=== PATIENT | male | born 1960 ===

== ENCOUNTER 2023-03-23 11:02 | Emergency (ER) | payer OTHER ==
--- OUTSIDE RECORDS SUMMARY | 2023-03-23 11:08 | XMS REPORT | Continuity of Care Document ---
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 2-29 capsule by ity of mg capsule 00:00: mouth [place] 00 daily. Medical Branch Polyethylen 2018- Yes [id number] 1{packe Take 1 Univers e Glycol 2-29 t} Packet by ity of 3350 00:00: mouth [place] (MIRALAX) 00 daily. Medical gram [place] powder docusate 2018-11 Yes [id number] 250mg Take 1 Un rupa sodium 250 2-29 capsule by ity of mg capsule 00:00: mouth [place] 00 daily. Medical Branch Polyethylen 2018-11 Yes [id number] 1{packe Take 1 Univers e Glycol 2-29 t} Packet by ity of 3350 00:00: mouth [place] (MIRALAX) 00 daily. Medical 17 gram Branch powder docusate 2018-11 Yes [id number] 250mg Take 1 Un rupa sodium 250 2-29 capsule by ity of mg capsule 00:00: mouth [place] 00 daily. Medical Branch Polyethylen 2018-11 Yes [id number] 1{packe Take 1 Univers e Glycol 2-29 t} Packet by ity of 3350 00:00: mouth [place] (MIRALAX) 00 daily. Medical 17 gram Branch powder docusate 2018-11 Yes [id number] 250mg Take 1 Un rupa sodium 250 2-29 capsule by ity of mg capsule 00:00: mouth [place] 00 daily. Medical Branch Polyethylen 2018- Yes [id number] 1{packe Take 1 Univers e Glycol 2-29 t} Packet by ity of 3350 00:00: mouth [place] (MIRALAX) 00 daily. Medical 17 gram Branch powder docusate 2018-11 Yes [id number] 250mg Take 1 Un rupa sodium 250 2-29 capsule by ity of mg capsule 00:00: mouth [place] 00 daily. Medical Branch Polyethylen 2018-11 Yes [id number] 1{packe Take 1 Univers e Glycol 2-29 t} Packet by ity of 3350 00:00: mouth [place] (MIRALAX) 00 daily. Medical 17 gram Branch powder docusate 2018-11 Yes [id number] 250mg Take 1 Un rupa sodium 250 2-29 capsule by ity of mg capsule 00:00: mouth [place] 00 daily. Medical Branch Polyethylen 2018- Yes [id number] 1{packe Take 1 Univers e Glycol 2-29 t} Packet by ity of 3350 00:00: mouth [place] (MIRALAX) 00 daily. Medical 17 gram Branch powder docusate 2018-11 Yes [id number] 250mg Take 1 Un [facility] sodium 250 2-29 capsule by ity of mg capsule 00:00: mouth [place] 00 daily. Medical Branch Polyethylen 2018-11 Yes [id number] 1{packe Take 1 Univers e Glycol 2-29 t} Packet by ity of 3350 00:00: mouth [place] (MIRALAX) 00 daily. Medical 17 gram Branch powder docusate 2018-11 Yes [id number] 250mg Take 1 Un rupa sodium 250 2-29 capsule by ity of mg capsule 00:00: mouth [place] 00 daily. Medical Branch Polyethylen 2018-11 Yes [id number] 1{packe Take 1 Univers e Glycol 2-29 t} Packet by ity of 3350 00:00: mouth [place] (MIRALAX) 00 daily. Medical 17 gram Branch powder docusate 2018-11 Yes [id number] 250mg Take 1 Un rupa sodium 250 2-29 capsule by ity of mg capsule 00:00: mouth [place] 00 daily. Medical Branch Polyethylen 2018-11 Yes [id number] 1{packe Take 1 Univers e Glycol 2-29 t} Packet by ity of 3350 00:00: mouth [place] (MIRALAX) 00 daily. Medical 17 gram Branch powder docusate 2018-11 Yes [id number] 250mg Take 1 Un rupa sodium 250 2-29 capsule by ity of mg capsule 00:00: mouth [place] 00 daily. Medical Branch Polyethylen 2018-11 Yes [id number] 1{packe Take 1 Univers e Glycol 2-29 t} Packet by ity of 3350 00:00: mouth [place] (MIRALAX) 00 daily. Medical 17 gram Branch powder docusate 2018-11 Yes [id number] 250mg Take 1 Un [facility]upa sodium 250 2-29 capsule by ity of mg capsule 00:00: mouth [place] 00 daily. Medical Branch Polyethylen 2018-11 Yes [id number] 1{packe Take 1 Univers e Glycol 2-29 t} Packet by ity of 3350 00:00: mouth [place] (MIRALAX) 00 daily. Medical 17 gram Branch powder docusate 2018-11 Yes [id number] 250mg Take 1 Un [facility]upa sodium 250 2-29 capsule by ity of mg capsule 00:00: mouth [place] 00 daily. Medical Branch Polyethylen 2018-11 Yes [id number] 1{packe Take 1 Univers e Glycol 2-29 t} Packet by ity of 3350 00:00: mouth [place] (MIRALAX) 00 daily. Medical 17 gram Branch powder docusate 2018-11 Yes [id number] 250mg Take 1 Un [facility] sodium 250 2-29 capsule by ity of mg capsule 00:00: mouth [place] 00 daily. Medical Branch Polyethylen 2018-11 Yes [id number] 1{packe Take 1 Univers e Glycol 2-29 t} Packet by ity of 3350 00:00: mouth [place] (MIRALAX) 00 daily. Medical 17 gram Branch powder docusate 2018-11 Yes [id number] 250mg Take 1 Un rupa sodium 250 2-29 capsule by ity of mg capsule 00:00: mouth [place] 00 daily. Medical Branch Polyethylen 2018-11 Yes [id number] 1{packe Take 1 Univers e Glycol 2-29 t} Packet by ity of 3350 00:00: mouth [place] (MIRALAX) 00 daily. Medical 17 gram Branch powder docusate 2018-11 Yes [id number] 250mg Take 1 Un [facility] sodium 250 2-29 capsule by ity of mg capsule 00:00: mouth [place] 00 daily. Medical Branch Polyethylen 2018-11 Yes [id number] 1{packe Take 1 Univers e Glycol 2-29 t} Packet by ity of 3350 00:00: mouth [place] (MIRALAX) 00 daily. Medical 17 gram Branch powder docusate 2018-11 Yes [id number] 250mg Take 1 Un rupa sodium 250 2-29 capsule by ity of mg capsule 00:00: mouth [place] 00 daily. Medical Branch Polyethylen 2018-11 Yes [id number] 1{packe Take 1 Univers e Glycol 2-29 t} Packet by ity of 3350 00:00: mouth [place] (MIRALAX) 00 daily. Medical 17 gram Branch powder docusate 2018-11 Yes [id number] 250mg Take 1 Un rupa sodium 250 2-29 capsule by ity of mg capsule 00:00: mouth [place] 00 daily. Medical Branch Polyethylen 2018-11 Yes [id number] 1{packe Take 1 Univers e Glycol 2-29 t} Packet by ity of 3350 00:00: mouth [place] (MIRALAX) 00 daily. Medical 17 gram Branch powder docusate 2018-11 Yes [id number] 250mg Take 1 Un rupa sodium 250 2-29 capsule by ity of mg capsule 00:00: mouth [place] 00 daily. Medical Branch Polyethylen 2018-11 Yes [id number] 1{packe Take 1 Univers e Glycol 2-29 t} Packet by ity of 3350 00:00: mouth [place] (MIRALAX) 00 daily. Medical 17 gram Branch powder docusate 2019- Yes [id number] 250mg Take 1 Un rupa sodium 250 2-29 capsule by ity of mg capsule 00:00: mouth [place] 00 daily. Medical Branch Polyethylen 2019 Yes [id number] 1{packe Take 1 Univers e Glycol 2-29 t} Packet by ity of 3350 00:00: mouth [place] (MIRALAX) 00 daily. Medical 17 gram Branch powder ASPIRIN 81 2016-11 Yes 81mg Take 1 Unive rs mg chewable 1-11 tablet by ity of tablet 00:00: mouth [place] 00 daily. Medical Branch ASPIRIN 81 2016-11 Yes 81mg Take 1 Unive rs mg chewable 1-11 tablet by ity of tablet 00:00: mouth [place] 00 daily. Medical Branch ASPIRIN 81 2016-11 Yes 81mg Take 1 Unive rs mg chewable 1-11 tablet by ity of tablet 00:00: mouth [place] 00 daily. Medical Branch ASPIRIN 81 2016-11 Yes 81mg Take 1 Unive rs mg chewable 1-11 tablet by ity of tablet 00:00: mouth [place] 00 daily. Medical Branch ASPIRIN 81 2016-11 Yes 81mg Take 1 Unive rs mg chewable 1-11 tablet by ity of tablet 00:00: mouth [place] 00 daily. Medical Branch ASPIRIN 81 2016-11 Yes 81mg Take 1 Unive rs mg chewable 1-11 tablet by ity of tablet 00:00: mouth [place] 00 daily. Medical Branch ASPIRIN 81 2016-11 Yes 81mg Take 1 Unive rs mg chewable 1-11 tablet by ity of tablet 00:00: mouth [place] 00 daily. Medical Branch ASPIRIN 81 2016-11 Yes 81mg Take 1 Unive rs mg chewable 1-11 tablet by ity of tablet 00:00: mouth [place] 00 daily. Medical Branch ASPIRIN 81 2016-11 Yes 81mg Take 1 Unive rs mg chewable 1-11 tablet by ity of tablet 00:00: mouth [place] 00 daily. Medical Branch ASPIRIN 81 2016- Yes 81mg Take 1 Unive rs mg chewable 1-11 tablet by ity of tablet 00:00: mouth [place] 00 daily. Medical Branch ASPIRIN 81 2016- Yes 81mg Take 1 Unive rs mg chewable 1-11 tablet by ity of tablet 00:00: mouth [place] 00 daily. Medical Branch ASPIRIN 81 2016-11 Yes 81mg Take 1 Unive rs mg chewable 1-11 tablet by ity of tablet 00:00: mouth [place] 00 daily. Medical Branch ASPIRIN 81 2016-11 Yes 81mg Take 1 Unive rs mg chewable 1-11 tablet by ity of tablet 00:00: mouth [place] 00 daily. Medical Branch ASPIRIN 81 2016-11 Yes 81mg Take 1 Unive rs mg chewable 1-11 tablet by ity of tablet 00:00: mouth [place] 00 daily. Medical Branch ASPIRIN 81 2016-11 Yes 81mg Take 1 Unive rs mg chewable 1-11 tablet by ity of tablet 00:00: mouth [place] 00 daily. Medical Branch ASPIRIN 81 2016-11 Yes 81mg Take 1 Unive rs mg chewable 1-11 tablet by ity of tablet 00:00: mouth [place] 00 daily. Medical Branch ASPIRIN 81 2016-11 Yes 81mg Take 1 Unive rs mg chewable 1-11 tablet by ity of tablet 00:00: mouth [place] 00 daily. Medical Branch ASPIRIN 81 2016-11 Yes 81mg Take 1 Unive rs mg chewable 1-11 tablet by ity of tablet 00:00: mouth [place] 00 daily. Medical Branch ASPIRIN 81 2016-11 Yes 81mg Take 1 Unive rs mg chewable 1-11 tablet by ity of tablet 00:00: mouth [place] 00 daily. Medical Branch ASPIRIN 81 2016-11 Yes 81mg Take 1 Unive rs mg chewable 1-11 tablet by ity of tablet 00:00: mouth [place] 00 daily. [facility] Branch ASPIRIN 81 2016-11 Yes 81mg Take 1 Unive rs mg chewable 1-11 tablet by ity of tablet 00:00: mouth [place] 00 daily. [facility] Branch lamoTRIgine Yes Bipolar 100mg QD Take 1 [place] (LAMICTAL) 8-10 Affective tablet by Health 100 mg 00:00: Disorder mouth [place] 00 daily. haloperidol Yes Bipolar 1 10mg Take 1 [place] (HALDOL) 10 8-10 disorder tablet by Health mg tablet 00:00: mouth 00 every evening. haloperidol Yes Bipolar 5mg QD Take 1 [facility] [place] (HALDOL) 5 8-10 Affective tablet by Health mg tablet 00:00: Disorder mouth 00 daily (with breakfast) . benztropine Yes Bipolar 1mg Q.5D Take 2 [facility] [place] (COGENTIN) 8-10 Affective tablets by Health 0.5 mg 00:00: Disorder mouth 2 tablet 00 times daily. lamoTRIgine Yes Bipolar 100mg QD Take 1 [place] (LAMICTAL) 8-10 Affective tablet by Health 100 mg 00:00: Disorder [place] 00 daily. haloperidol Yes Bipolar 1 10mg Take 1 [place] (HALDOL) 10 8-10 disorder tablet by Health mg tablet 00:00: mouth 00 every evening. haloperidol Yes Bipolar 5mg QD Take 1 [facility] [place] (HALDOL) 5 8-10 Affective tablet by Health mg tablet 00:00: Disorder mouth 00 daily (with breakfast) . benztropine Yes Bipolar 1mg Q.5D Take 2 [facility] [place] (COGENTIN) 8-10 Affective tablets by Health 0.5 mg 00:00: Disorder mouth 2 tablet 00 times daily. lamoTRIgine Yes Bipolar 100mg QD Take 1 [place] (LAMICTAL) 8-10 Affective tablet by Health 100 mg 00:00: Disorder mouth [place] 00 daily. haloperidol Yes Bipolar 1 10mg Take 1 [place] (HALDOL) 10 8-10 disorder tablet by Health mg tablet 00:00: mouth 00 every evening. haloperidol Yes Bipolar 5mg QD Take 1 [facility] [place] (HALDOL) 5 8-10 Affective tablet by Health mg tablet 00:00: Disorder mouth 00 daily (with breakfast) . benztropine Yes Bipolar 1mg Q.5D Take 2 [facility] [place] (COGENTIN) 8-10 Affective tablets by Health 0.5 mg 00:00: Disorder mouth 2 tablet 00 times daily. benztropine Yes Bipolar 1mg Q.5D Take 2 [facility] [place] (COGENTIN) 8-10 Affective tablets by Health 0.5 mg 00:00: Disorder mouth 2 tablet 00 times daily. lamoTRIgine Yes Bipolar 100mg QD Take 1 [place] (LAMICTAL) 8-10 Affective tablet by Health 100 mg 00:00: Disorder mouth [place] 00 daily. haloperidol Yes Bipolar 1 10mg Take 1 [place] (HALDOL) 10 8-10 disorder tablet by Health mg tablet 00:00: mouth 00 every evening. haloperidol Yes Bipolar 5mg QD Take 1 [facility] [place] (HALDOL) 5 8-10 Affective tablet by Health mg tablet 00:00: Disorder mouth 00 daily (with breakfast) . lamoTRIgine Yes Bipolar 100mg QD Take 1 [place] (LAMICTAL) 8-10 Affective tablet by Health 100 mg 00:00: Disorder mouth tablet 00 daily. haloperidol Yes Bipolar 1 10mg Take 1 [place] (HALDOL) 10 8-10 disorder tablet by Health mg tablet 00:00: mouth 00 every evening. haloperidol Yes Bipolar 5mg QD Take 1 [facility] [place] (HALDOL) 5 8-10 Affective tablet by Health mg tablet 00:00: Disorder mouth 00 daily (with breakfast) . benztropine Yes Bipolar 1mg Q.5D Take 2 [facility] [place] (COGENTIN) 8-10 Affective tablets by Health 0.5 mg 00:00: Disorder mouth 2 tablet 00 times daily. lamoTRIgine Yes 100mg Take 1 Tab Univers (LAMICTAL) 7-22 by mouth ity o f 100 mg 00:00: daily. [place] tablet [facility] lamoTRIgine Yes 100mg Take 1 Tab Univers (LAMICTAL) 7-22 by mouth ity o f 100 mg 00:00: daily. [place] tablet [facility] lamoTRIgine 0 Yes 100mg Take 1 Tab Univers (LAMICTAL) 7-22 by mouth ity o f 100 mg 00:00: daily. [place] tablet [facility] lamoTRIgine 0 Yes 100mg Take 1 Tab Univers (LAMICTAL) 7-22 by mouth ity o f 100 mg 00:00: daily. [place] tablet [facility] lamoTRIgine 0 Yes 100mg Take 1 Tab Univers (LAMICTAL) 7-22 by mouth ity o f 100 mg 00:00: daily. [place] tablet [facility] lamoTRIgine 0 Yes 100mg Take 1 Tab Univers (LAMICTAL) 7-22 by mouth ity o f 100 mg 00:00: daily. [place] tablet [facility] lamoTRIgine 0 Yes 100mg Take 1 Tab Univers (LAMICTAL) 7-22 by mouth ity o f 100 mg 00:00: daily. [place] tablet [facility] lamoTRIgine 0 Yes 100mg Take 1 Tab Univers (LAMICTAL) 7-22 by mouth ity o f 100 mg 00:00: daily. [place] tablet [facility] lamoTRIgine 2015-0 Yes 100mg Take 1 Tab Univers (LAMICTAL) 7-22 by mouth ity o f 100 mg 00:00: daily. [place] tablet 00 [facility] lamoTRIgine 2015-0 Yes 100mg Take 1 Tab Univers (LAMICTAL) 7-22 by mouth ity o f 100 mg 00:00: daily. [place] tablet [facility] lamoTRIgine 2015-0 Yes 100mg Take 1 Tab Univers (LAMICTAL) 7-22 by mouth ity o f 100 mg 00:00: daily. [place] tablet [facility] lamoTRIgine 2015-0 Yes 100mg Take 1 Tab Univers (LAMICTAL) 7-22 by mouth ity o f 100 mg 00:00: daily. [place] tablet [facility] lamoTRIgine 2015-0 Yes 100mg Take 1 Tab Univers (LAMICTAL) 7-22 by mouth ity o f 100 mg 00:00: daily. [place] tablet [facility] lamoTRIgine 2015-0 Yes 100mg Take 1 Tab Univers (LAMICTAL) 7-22 by mouth ity o f 100 mg 00:00: daily. [place] tablet [facility] lamoTRIgine 2015-0 Yes 100mg Take 1 Tab Univers (LAMICTAL) 7-22 by mouth ity o f 100 mg 00:00: daily. [place] tablet [facility] lamoTRIgine 2015-0 Yes 100mg Take 1 Tab Univers (LAMICTAL) 7-22 by mouth ity o f 100 mg 00:00: daily. [place] tablet [facility] lamoTRIgine 2015-0 Yes 100mg Take 1 Tab Univers (LAMICTAL) 7-22 by mouth ity o f 100 mg 00:00: daily. [place] tablet 00 [facility] lamoTRIgine 2015-0 Yes 100mg Take 1 Tab Univers (LAMICTAL) 7-22 by mouth ity o f 100 mg 00:00: daily. [place] tablet [facility] lamoTRIgine 2015-0 Yes 100mg Take 1 Tab Univers (LAMICTAL) 7-22 by mouth ity o f 100 mg 00:00: daily. [place] tablet [facility] lamoTRIgine 2015-0 Yes 100mg Take 1 Tab Univers (LAMICTAL) 7-22 by mouth ity o f 100 mg 00:00: daily. [place] tablet 00 [facility] lamoTRIgine 2015-0 Yes 100mg Take 1 Tab Univers (LAMICTAL) 7-22 by mouth ity o f 100 mg 00:00: daily. [place] tablet 00 [facility] Immunizations Ordered Filled Immunization Date Status Comments [facility] e Immunization Name Name TDAP (ADACEL) 2020-01-09 Completed University of VACCINE 00:00:00 [facility] TDAP (ADACEL) 2020-01-09 Completed University of VACCINE 00:00:00 [facility] TDAP (ADACEL) 2020-01-09 Completed University of VACCINE 00:00:00 [facility] TDAP (ADACEL) 2020-01-09 Completed University of VACCINE 00:00:00 [facility] TDAP (ADACEL) 2020-01-09 Completed University of VACCINE 00:00:00 [facility] TDAP (ADACEL) 2020-01-09 Completed University of VACCINE 00:00:00 [facility] TDAP (ADACEL) 2020-01-09 Completed University of VACCINE 00:00:00 [facility] TDAP (ADACEL) 2020-01-09 Completed University of VACCINE 00:00:00 [facility] TDAP (ADACEL) 2020-01-09 Completed University of VACCINE 00:00:00 [facility] TDAP (ADACEL) 2020-01-09 Completed University of VACCINE 00:00:00 [facility] TDAP (ADACEL) 2020-01-09 Completed University of VACCINE 00:00:00 [facility] TDAP (ADACEL) 2020-01-09 Completed University of VACCINE 00:00:00 [facility] TDAP (ADACEL) 2020-01-09 Completed University of VACCINE 00:00:00 [facility] TDAP (ADACEL) 2020-01-09 Completed University of VACCINE 00:00:00 [facility] TDAP (ADACEL) 2020-01-09 Completed University of VACCINE 00:00:00 [facility] TDAP (ADACEL) 2020-01-09 Completed University of VACCINE 00:00:00 [facility] TDAP (ADACEL) 2020-01-09 Completed University of VACCINE 00:00:00 [facility] TDAP (ADACEL) 2020-01-09 Completed University of VACCINE 00:00:00 [facility] TDAP (ADACEL) 2020-01-09 Completed University of VACCINE 00:00:00 [facility] TDAP (ADACEL) 2020-01-09 Completed University of VACCINE 00:00:00 [facility] TDAP (ADACEL) 2020-01-09 Completed University of VACCINE 00:00:00 [facility] Vital Signs Vital Name Observation Time Observation Value Comments Source Systolic blood 2023-02-03 20:56:00 161 mm[Hg] Univer sity of pressure [facility] Diastolic blood 2023-02-03 20:56:00 89 mm[Hg] Unive rsity of pressure [facility] Heart rate 2023-02-03 20:55:00 75 /min Universi ty of [place] [facility] Body height 2023-02-03 20:55:00 193 cm Universi ty of [place] [facility] Body weight 2023-02-03 20:55:00 87.998 kg Universi ty of [place] [facility] BMI 2023-02-03 20:55:00 23.61 kg/m2 Universi ty of [place] [facility] Body weight 2023-01-08 14:24:00 81.647 kg Universi ty of [place] [facility] BMI 2023-01-08 14:24:00 21.91 kg/m2 Universi ty of [place] [facility] Body height 2022-11-26 15:49:00 193 cm Universi ty of [place] [facility] Body weight 2022-11-26 15:49:00 81.647 kg Universi ty of [place] [facility] [place] BMI 2022-11-26 15:49:00 21.91 kg/m2 Universi ty of [place] [facility] Systolic blood 2022-11-20 19:00:00 147 mm[Hg] Univer sity of pressure [facility] Diastolic blood 2022-11-20 19:00:00 101 mm[Hg] Unive rsity of [facility] Heart rate 2022-11-20 19:00:00 66 /min Universi ty of [place] [facility] Respiratory rate 2022-11-20 19:00:00 16 /min [facility] [place] [facility] Oxygen saturation in 2022-11-20 19:00:00 91 /min [facility] Arterial blood by [facility] Pulse oximetry Branch Body temperature 2022-11-20 15:56:00 37.28 [place] Univ ersity of [place] [facility] Body height 2022-11-20 15:56:00 193 cm Universi ty [facility] [place] [facility] Body weight 2022-11-20 15:56:00 81.647 kg [facility]i ty [facility] [place] [facility] BMI 2022-11-20 15:56:00 21.91 kg/m2 [facility] [place] [facility] Systolic blood 2022-10-07 17:28:00 147 mm[Hg] Univer sity of pressure [facility] Diastolic blood 2022-10-07 17:28:00 88 mm[Hg] Unive rsity of pressure [place] [facility] Heart rate 2022-10-07 17:28:00 66 /min [facility]i ty [facility] [place] [facility] Body height 2022-10-07 17:28:00 193 cm [facility]i ty [facility] [place] [facility] Body weight 2022-10-07 17:28:00 79.833 kg [facility]i [facility] [place] [facility] BMI 2022-10-07 17:28:00 21.42 kg/m2 Universi ty of [place] [facility] Systolic blood 2022-06-01 02:52:00 176 mm[Hg] Univer sity of pressure [facility] Branch Diastolic blood 2022-06-01 02:52:00 101 mm[Hg] Unive rsity of pressure [place] [facility] [place] Heart rate 2022-06-01 02:52:00 75 /min Universi ty of [place] [facility] [place] Body temperature 2022-06-01 02:52:00 36.72 [place] [facility] Respiratory rate 2022-06-01 02:52:00 16 /min [facility] Oxygen saturation in 2022-06-01 02:52:00 99 /min [facility] Arterial blood by [facility] Pulse oximetry Branch Body temperature 2021-10-21 20:04:00 36.39 [place] [facility] ersity of [facility] Body height 2021-10-21 20:04:00 193 cm Universi ty [facility] [place] [facility] Body weight 2021-10-21 20:04:00 86.637 kg Universi ty of [facility] Branch BMI 2021-10-21 20:04:00 23.25 kg/m2 [facility] [place] [facility] Procedures Procedure Date / Time Performing Clinician Source Performed [facility] PATIENT FINANCIAL 2023-02-03 20:40:51 [facility] [place] [facility] [place] [facility] URINALYSIS 2022-11-20 19:18:00 Mayela Vanessa [facility] [place] MAGNESIUM 2022-11-20 17:21:00 Mayela Vanessa [facility] COMP. METABOLIC PANEL 2022-11-20 17:21:00 Mayela Vanessa [facility] ([id number]) Medical Branch XR CHEST 1 VW 2022-11-20 16:49:28 Mayela Vanessa [facility] XR FOREARM 2 VW LEFT 2022-11-20 16:49:28 Mayela Vanessa [facility] XR WRIST 3+ VW LEFT 2022-11-20 16:49:28 Mayela Vanessa [facility] CT CERVICAL SPINE WO 2022-11-20 16:38:58 Mayela Vanessa [facility] CONTRAST Medical Branch CT HEAD WO CONTRAST 2022-11-20 16:38:58 Mayela Vanessa [facility] TROPONIN I 2022-11-20 16:23:00 Mayela Vanessa [facility] CBC WITH DIFF 2022-11-20 16:23:00 Enedina [facility] CONSENT/REFUSAL FOR 2022-11-20 15:52:08 Doctor Unausman, [facility] DIAGNOSIS AND TREATMENT [facility] [place] [facility] NON [facility] FACILITY 2022-07-17 05:01:00 Doctor Lynn, [facility] DOCUMENTATION [facility] [place] [facility] [place] RESUPERF WND FACE 2022-06-01 03:49:07 Bonita [facility] 2.5CM OR LESS Medical Branch [place] RESUPERF WND FACE 2022-06-01 03:47:37 Bonita Wellington [facility] 2.6-[address] TRAUMA HEAD WO 2022-06-01 03:18:19 Bonita Wellington [facility] CONTRAST Medical Branch CT TRAUMA CERVICAL SPINE 2022-06-01 03:18:19 Bonita [facility] WO CONTRAST Medical Branch CONSENT/REFUSAL FOR 2022-06-01 02:48:11 Doctor Unausman, [facility] DIAGNOSIS AND TREATMENT [facility] [place] [facility] INSURANCE CORRESPONDENCE 2022-01-29 06:01:00 [facility] [place] [facility] Plan of Care Planned Activity Planned Date Details Comments Source Future Scheduled Test 2022-08-29 00:00:00 IMM Influenza [facility] Seasonal (>/= 19 yrs) [code = IMM Influenza Seasonal (>/= 19 yrs)] Future Scheduled Test 2022-08-29 00:00:00 IMM Influenza [facility] Seasonal (>/= 19 yrs) [code = IMM Influenza Seasonal (>/= 19 yrs)] Future Scheduled Test 2022-08-29 00:00:00 IMM Influenza [facility] Seasonal (>/= 19 yrs) [code = IMM Influenza Seasonal (>/= 19 yrs)] Future Scheduled Test 2022-08-29 00:00:00 IMM Influenza [facility] Seasonal (>/= 19 yrs) [code = IMM Influenza Seasonal (>/= 19 yrs)] Future Scheduled Test 2022-08-29 00:00:00 IMM Influenza [facility] Seasonal (>/= 19 yrs) [code = IMM Influenza Seasonal (>/= 19 yrs)] Future Scheduled Test 2012-02-12 00:00:00 Screening for [facility] malignant neoplasm of colon (procedure) [code = 387223367] Future Scheduled Test 2012-02-12 00:00:00 Screening for [facility] malignant neoplasm of colon (procedure) [code = 492070191] Future Scheduled Test 2012-02-12 00:00:00 Screening for [facility] malignant neoplasm of colon (procedure) [code = 135229260] Future Scheduled Test 2012-02-12 00:00:00 Screening for [facility] malignant neoplasm of colon (procedure) [code = [id number]] Future Scheduled Test 2012-02-12 00:00:00 Screening for [facility] malignant neoplasm of colon (procedure) [code = [id number]] Future Scheduled Test 1962 00:00:00 COVID-19 Vaccine (#1) [facility] [code = COVID-19 Vaccine (#1)] Future Scheduled Test 1962 00:00:00 COVID-19 Vaccine (#1) [facility] [code = COVID-19 Vaccine (#1)] Future Scheduled Test 1962 00:00:00 COVID-19 Vaccine (#1) [facility] [code = COVID-19 Vaccine (#1)] Future Scheduled Test 1962 00:00:00 COVID-19 Vaccine (#1) [facility] [code = COVID-19 Vaccine (#1)] Future Scheduled Test 1962 00:00:00 COVID-19 Vaccine (#1) [facility] [code = COVID-19 Vaccine (#1)] Future Scheduled Test 1962 00:00:00 Fluoride Varnish [facility] [code = Fluoride Varnish] Future Scheduled Test 1962 00:00:00 Fluoride Varnish [facility] [code = Fluoride Varnish] Encounters Start End Encounter Admission Attending Care Care Encounter Source Date/Time Date/Time Type Type Clinicians Facility Department ID 2023-03-02 2023-03-02 Outpatient Alec GALLEGO [facility] [id number] Univers 11:00:00 11:00:00 [facility] 2023-02-17 2023-02-17 Outpatient Alec GALLEGO [facility] [id number] Univers 08:00:00 09:38:42 MARIA VICTORIA [facility] 2023-02-17 2023-02-17 Ancillary Aiyana Forde [facility] 1.2.84 0.114 [id number] Univers 08:00:00 09:38:42 Visit Maria Victoria Gallego 350.1.13.10 jaymiey fariba [facility] [place] [phone] Az dical ANTHONY 178 [facility] 2023-02-03 2023-02-03 Outpatient Alec DEE [facility] [id number] Univers 14:00:00 15:00:50 CAT [facility] 2023-02-03 2023-02-03 Office Leila [facility] 1.2.840.114 [id number] Univers 14:00:00 15:00:50 Visit [facility] 350.1.13.10 it y Kristie PICKENS 4.2.7.2.686 Otilio as GAGE?BLEA [id number] Az dical [address] MEDICAL OFFICE BUILDING 2023-02-03 2023-02-03 Orders Doctor GODOY 1.2.840.114 [id number] Univers 00:00:00 00:00:00 Only Unassigned, MIR[place]LE 350.1.13.10 [place] [facility] 4.2.7.2.686 Otilio as [phone] [address] 2023-02-03 2023-02-03 [facility] 1.2.840.114 [id number] Univers 00:00:00 00:00:00 [facility] 350.1.13.10 it y of [place]ohail [facility] 4.2.7.2.686 Otilio as GAGE?BLEA [phone] Az dical RAMANGEMA 044 [facility] OFFICE [facility] 2023-02-01 2023-02-01 Case [facility] 1.2.840.114 [id number] Univers 00:00:00 00:00:00 Management Aiyana [facility] 350.1.13.10 ity of [place] [phone] Az dical ANTHONY 178 [facility] 2023-01-08 2023-01-08 Outpatient [facility] [id number] Univers 08:30:00 08:55:20 [facility] 2023-01-08 2023-01-08 Office [facility] 1.2.061.514 [id number] Univers 08:30:00 08:55:20 Visit [facility] 350.1.13.10 it y of [place] 4.2.7.2.686 Otilio as GAGE?BLEA [phone] Az dical RAMANGEMA 198 [facility] OFFICE [facility] 2023-01-04 2023-01-04 Outpatient [facility] [id number] Univers 13:45:00 13:45:00 [facility] 2022-12-03 2022-12-03 Outpatient [facility] [id number] Univers 11:15:00 11:46:05 [facility] 2022-12-03 2022-12-03 Office [facility] [id number] [id number] Univers 11:15:00 11:46:05 [facility] 350.1.13.10 it y of [place] 4.2.7.2.686 Otilio as GAGE?BLEA [phone] Az olena ALFONSO 198 [facility] OFFICE [facility] 2022-11-26 2022-11-26 Office Gallego [facility] [id number] Univers 10:15:00 10:15:00 Visit Maria Victoria Vieyra [facility] 350.1.13.10 it y of [place] 4.2.7.2.686 Otilio as GAGE?BLEA [phone] Az olena ALFONSO 198 [facility] OFFICE [facility] 2022-11-26 2022-11-26 Outpatient R [facility] [id number] Univers 10:15:00 10:10:53 MARIA VICTORIA eulogio [facility] 2022-11-20 2022-11-20 Emergency X Mayela VANESSA [facility] ERT [id number] Univers 10:10:00 15:44:00 ity [facility] 2022-11-20 2022-11-20 Emergency Mayela Vanessa [facility] 1.2.840.114 [id number] Univers 10:10:00 15:44:00 Martita PICKENS 350.1.13.10 i ty of [place] 4.2.7.2.686 [place] [facility] [phone] [facility] [address] [place] 2022-10-07 2022-10-07 [facility] 1.2.840.114 [id number] Univers 11:30:00 11:45:00 Visit [facility] 350.1.13.10 it y of [place] 4.2.7.2.686 Otilio as GAGE?BLEA [phone] Az olena ALFONSO 044 [facility] OFFICE [facility] 2022-10-07 2022-10-07 Outpatient R LEILA [facility] [id number] Univers 11:30:00 11:30:00 CAT eulogio [facility] 2022-10-07 2022-10-07 Telephone [facility] 1.2.467.025 [id number] Univers 00:00:00 00:00:00 [facility] 350.1.13.10 it y of [place] 4.2.7.2.686 Otilio as GAGE?BLEA [phone] Az olena ALFONSO [address] [place] [address] MEDICAL OFFICE BUILDING 2022-07-28 2022-07-28 Telephone [facility] 1.2.840.114 [id number] Univers 00:00:00 00:00:00 Cat PICKENS 350.1.13.10 i ty of [place] [facility] 4.2.7.2.686 [place] [facility] [phone] Az olena CRUZ [address] [place] [address] 2022-07-17 2022-07-17 Emergency Emergency [place], [facility] [id number] [facility] 16:40:00 16:40:00 Lars 81 2022-07-17 2022-07-17 Emergency [facility] [id number] [facility] 16:40:00 16:40:00 81 2022-07-17 2022-07-17 Outpatient Alec BRAMBILA [facility] NUT [id number] Univers 00:00:00 00:00:00 MINNIE moore [facility] 2022-07-17 2022-07-17 Orders Doctor GODOY 1.2.840.114 [id number] Univers 00:00:00 00:00:00 Only Unassigned, MIR[place]LE 350.1.13.10 [facility]y [facility] 4.2.7.2.686 Otilio as [phone] [facility] [address] [place] 2022-06-09 2022-06-09 Out[facility] [id number] Univers 14:15:00 14:15:00 CAT moore [facility] 2022-05-31 2022-05-31 Emergency [facility] ERT [id number] Univers 21:48:00 23:22:00 BONITA moore [facility] 2022-05-31 2022-05-31 Emergency [facility] 1.2.840.114 [id number] Univers 21:48:00 23:22:00 Bonita PICKENS 350.1.13.10 ity [facility] 4.2.7.2.686 [place] [id number] [facility] [address] [place] 2022-01-29 2022-01-29 Orders Doctor GODOY 1.2.840.114 [id number] Univers 00:00:00 00:00:00 Only Unassigned, MIR[place]LE 350.1.13.10 ity [facility] [place] 4.2.7.2.686 Otilio as [phone] [place] [address] [place] 2021-10-21 2021-10-21 Outpatient R BERNADETTE [facility] [id number] Univers 14:15:00 14:15:00 YUSUF moore [facility] 2021-10-21 2021-10-21 Office [facility] 1.2.840.114 [id number] Univers 13:44:09 13:59:09 Visit [facility] 350.1.13.10 it y of [place] 4.2.7.2.686 [place] [facility] [phone] [facility] PRIMARY & [facility] SPECIALTY CARE 2021-10-15 2021-10-15 Office Leila [facility] 1.2.840.114 [id number] Univers 08:46:39 09:01:39 Visit Cat [facility] 350.1.13.10 it y of [place] 4.2.7.2.686 Otilio as GAGE?BLEA [id number] Az bowenalethea [facility] [address] [place] MEDICAL OFFICE BUILDING 2021-10-15 2021-10-15 Outpatient R LEILA [facility] [id number] Univers 09:00:00 09:00:00 CAT teresa [facility] 2021-10-09 2021-10-09 Urgent BasiliashruthiLucía [facility] 1.2.840.114 [id number] Univers 12:43:33 13:03:33 Kris Schneider Michelle [facility] 350.1.13.10 ity of [facility] 4.2.7.2.686 Otilio as GAGE?BLEA [id number] Az bowenalethea [facility] [address] [place] MEDICAL OFFICE BUILDING 2021-10-09 2021-10-09 Outpatient R DEMETRIS [facility] [id number] Univers 12:40:00 12:40:00 MICHELLE moore [facility] 2021-10-09 2021-10-09 Orders Doctor GODOY 1.2.840.114 [id number] Univers 00:00:00 00:00:00 Only Unassigned, [place]IR[place] 350.1.13.10 [place] [facility] 4.2.7.2.686 Otilio as [phone] [address] 2021-05-14 2021-05-14 Orders Doctor WALT 1.2.840.114 [id number] Univers 00:00:00 00:00:00 Only Unassigned, [place] 350.1.13.10 [place] [facility] 4.2.7.2.686 Otilio as [phone] [address] 2021-04-07 2021-04-07 Orders Doctor WALT 1.2.840.114 [id number] Univers 00:00:00 00:00:00 Only Unassigned, [place] 350.1.13.10 [place] [facility] 4.2.7.2.686 Otilio as [phone] [address] 2020-12-20 2020-12-20 Out[facility] [id number] Univers 15:00:00 15:00:00 KASSI moore [facility] 2020-12-20 2020-12-20 Office [facility] 1.2.840.114 [id number] Univers 14:29:55 14:59:55 Visit Kassi [facility] 350.1.13.10 i ty of [place] 4.2.7.2.686 Otilio as Professio [phone] [address] 2020-02-06 2020-02-06 Telephone [facility] 1.2.840.114 [id number] Univers 00:00:00 00:00:00 [facility] 350.1.13.10 i ty of [place] 4.2.7.2.686 Otilio as Professio [phone] [address] 2020-01-17 2020-01-17 Outpatient [facility] 797 [id number] [facility] 07:24:00 07:24:00 _J_AH [address] Family Practic e 2020-01-09 2020-01-09 Office [facility] 1.2.840.114 [id number] Univers 10:04:01 10:54:23 Visit [facility] 350.1.13.10 i ty of [place] 4.2.7.2.686 Otilio as Suzy [phone] Az dical nal [address] [facility] 2020-01-09 2020-01-09 Orders Doctor WALT 1.2.840.114 [id number] Univers 00:00:00 00:00:00 Only Unassigned, MIR[place]LE 350.1.13.10 it[place] [facility] 4.2.7.2.686 Otilio as [phone] [facility] [address] 2019-11-26 2019-11-26 Emergency X BLANDON, [facility] ERT [id number] Univers 21:14:56 23:36:00 EDEN moore [facility] Results Test Description Test Time Test Comments Results Result Comments Source COMP. METABOLIC PANEL (08537) 2022-11-20 17:43:30 Test Item Value Reference Range Interpretation Comme nts NA (test code = 9556515197) 137 mmol/L 135-145 K (test code = 5416686252) 5.1 mmol/L 3.5-5.0 H CL (test code = 2056019655) 100 mmol/L 98-108 CO2 TOTAL (test code = 2972585904) 30 mmol/L 23-31 AGAP (test code = 1430317395) 2-16 BUN (test code = 1867830314) 22 mg/dL 7-23 GLUCOSE (test code = 1041267803) 98 mg/dL 70-110 CREATININE (test code = 1.10 mg/dL 0.60-1.25 2009755105) TOTAL BILI (test code = 0.4 mg/dL 0.1-1.1 4836260287) CALCIUM (test code = 3936223676) 9.8 mg/dL 8.6-10.6 T PROTEIN (test code = 5478702374) 7.6 g/dL 6.3-8.2 ALBUMIN (test code = 5398533696) 4.7 g/dL 3.5-5.0 ALK PHOS (test code = 8906110178) 105 U/L 34-122 ALTv (test code = 1742-6) 35 U/L 5-50 AST(SGOT) (test code = 6360123770) 27 U/L 13-40 eGFR (test code = 6609369599) mL/min/1.73m2 KEYUR (test code = KEYUR) Association of Glomerular Filtration Rate (GFR) and Staging of Kidney Disease* + +-------- + ------+| GFR (mL/min/1.73 m2) ?| With Kidney Damage ?| ?Without Kidney Damage+ +-- + +| ?>90 ?| ?Stage one ?| ? Normal ?+ +------- + -------+| ?60-89 ?| ?Stage two ?| ? Decreased GFR ? + +-------- + ------+| ?30-59 ?| ?Stage three ?| ? Stage three ? + +-------- + ------+| ?15-29 ?| ?Stage four ? | ? Stage four ?+ +------- + -------+| ?<15 (or dialysis) ? ?| ?Stage five ? | ? Stage five ?+ +------- + -------+ *Each stage assumes the associated GFR level has been in effect for at least three months. ?Stages 1 to 5, with or without kidney disease, indicate chronic kidney disease. Notes: Determination of stages one and two (with eGFR >59mL/min/1.73 m2) requires estimation of kidney damage for at least three months as defined by structural or functional abnormalities of the kidney, manifested by either:Pathological abnormalities or Markers of kidney damage (including abnormalities in the composition of the blood or urine or abnormalities in imaging tests). Lab Interpretation (test code = Abnormal 06467-1) [facility] 17:42:10 Test Item Value Reference Range Interpretation Comments MAGNESIUM (test code = 9228282453) 1.6 mg/dL 1.7-2.4 L Lab Interpretation (test code = Abnormal 53431-8) [facility] [id number] 16:56:30 Test Item Value Reference Interpretation Comments Range TROPONIN I (test 0.023 ng/mL See_Comment [Automated code = 8555011241) message] The system which generated this result transmitted reference range : <=0.034. The reference range was not used to interpret this result as normal/abnormal . KEYUR (test code = Reference (Normal) KEYUR) Range (defined by the 99th percentile reference limit): <= 0.034 ng/mL Note: Cardiac troponin begins to rise 3-4 hours after the onset of ischemia. Repeat in 4-6 hours if the sample was drawn within 3-4 hours of the onset of the symptom and found normal. Diagnosis of myocardial injury is made with acute changes in cTn concentrations with at least one serial sample above the 99th percentile upper reference limit (URL), taken together with the patient's clinical presentation. Biotin has been reported to cause a negative bias, interpret results relative to patient's use of biotin. Lab Interpretation Normal (test code = 43201-2) [facility] WITH [id number] 16:30:06 Test Item Value Reference Range Interpretation Comments WBC (test code = See_Comment H [Automated 7655-2) message] The sy stem which generated this result transmitted reference range : 4.20 - 10.70 10*3/?L. The reference range was not used to interpret this result as normal/abnormal . RBC (test code = See_Comment [Automated 845-8) message] The sy stem which generated this result transmitted reference range : 4.26 - 5.52 10*6/?L. The reference range was not used to interpret this result as normal/abnormal . HGB (test code = 13.7 g/dL 12.2-16.4 718-7) HCT (test code = 40.0 % 38.4-49.3 4544-3) MCV (test code = 89.3 fL 81.7-95.6 787-2) MCH (test code = 30.6 pg 26.1-32.7 785-6) MCHC (test code = 34.3 g/dL 31.2-35.0 786-4) RDW-SD (test code = 40.7 fL 38.5-51.6 00860-1) RDW-CV (test code = 12.5 % 12.1-15.4 788-0) PLT (test code = See_Comment [Automated 567-3) message] The sy stem which generated this result transmitted reference range : 150 - 328 10*3/ ?L. The reference r dennis was not used to interpret this result as normal/abnormal . MPV (test code = 9.3 fL 9.8-13.0 L 37222-2) NRBC/100 WBC (test See_Comment [Automat ed code = 3719406091) message] The system which generated this result transmitted reference range : 0.0 - 10.0 /100 WBCs. The refer ence range was not u sed to interpret th is result as normal/abnormal . NRBC x10^3 (test code See_Comment [Auto mated = 4010739454) message] The s ystem which generated this result transmitted reference range : 10*3/?L. The reference range was not used to interpret this result as normal/abnormal . GRAN MAT (NEUT) % 83.5 % (test code = 770-8) IMM GRAN % (test code 0.30 % = 8294869577) LYMPH % (test code = 10.4 % 736-9) MONO % (test code = 5.2 % 5905-5) EOS % (test code = 0.3 % 713-8) BASO % (test code = 0.3 % 706-2) GRAN MAT x10^3(ANC) 9.58 10*3/uL 1.99-6.95 H (test code = 2128900048) IMM GRAN x10^3 (test 0.04 10*3/uL 0.00-0.06 code = 6840788993) LYMPH x10^3 (test code 1.20 10*3/uL 1.09-3.23 = 731-0) MONO x10^3 (test code 0.60 10*3/uL 0.36-1.02 = 742-7) EOS x10^3 (test code = 0.03 10*3/uL 0.06-0.53 L 711-2) BASO x10^3 (test code 0.04 10*3/uL 0.01-0.09 = 704-7) Lab Interpretation Abnormal (test code = 18941-6) [facility] Auto [id number] 16:56:00 Test Item Value Reference Range Interpretation Comments White Blood Count (test code = 10.1 x10 3/uL 4.4-10.5 N WBCT) Red Blood Count (test code = 3.98 x10 6/uL 4.10-5.70 L RBC) Hemoglobin (test code = HGBT) 12.6 g/dL 13.4-17.4 L Hematocrit (test code = HCTT) 35.0 % 38.7-52.0 L Mean Corpuscular Volume (test 87.90 fL 80.00-100.00 N code = MCV) Mean Corpuscular Hemoglobin 31.7 pg 27.0-32.5 N (test code = MCH) Mean Corpuscular HGB Conc 36.00 g/dL 32.00-37.50 N (test code = MCHC) RDW Coefficient of Variation 12.3 % 11.5-14.5 N (test code = RDWCV) Platelet Count (test code = 311.0 x10 3/uL 140.0-440.0 N PLTT) Mean Platelet Volume (test 10.8 fL code = MPV) Immature Granulocytes % (Auto) 0.3 % 0.0-5.0 N (test code = IMMGRAN%) Neutrophils % (Auto) (test 68.1 % 36.0-70.0 N code = NE%) Lymphocytes % (Auto) (test 18.9 % 12.0-44.0 N code = LY%) Monocytes % (Auto) (test code 10.2 % 0.0-11.0 N = MO%) Eosinophils % (Auto) (test 2.2 % 0.0-7.0 N code = EO%) Basophils % (Auto) (test code 0.3 % 0.0-2.0 N = BA%) Immature Granulocytes # (Auto) 0.03 x10 3/uL (test code = IMMGRAN#) Neutrophils # (Auto) (test 6.9 x10 3/uL 1.6-7.4 N code = NE#) Lymphocytes # (Auto) (test 1.90 x10 3/uL 0.50-4.60 N code = LY#) Monocytes # (Auto) (test code 1.03 x10 3/uL 0.00-1.20 N = MO#) Eosinophils # (Auto) (test 0.22 x10 3/uL 0.00-0.74 N code = EO#) Basophils # (Auto) (test code 0.03 x10 3/uL 0.00-0.21 N = BA#) nRBC Abs (test code = NRBCA) 0 nRBC Pct (test code = NRBCP) 0 % Comprehensive Metabolic [id number] 16:56:00 Test Item Value Reference Range Interpretation Comments SODIUM (test code = NA) 142.0 mmol/L 136.0-145.0 N Potassium,K (test code = K) 3.0 mmol/L 3.0-5.1 N Chloride (test code = CL) 105 mmol/L 98-107 N Carbon Dioxide (test code = CO2) 32 mmol/L 20-31 H Anion Gap (test code = GAP) 5 mmol/L 5-15 N Blood Urea Nitrogen (test code = 23 mg/dL 9-23 N BUN) Creatinine (test code = CREATT) 1.21 mg/dL 0.55-1.02 H Creatinine Clr Calc Pharmacy 70.81 mL/min (test code = CRCLPHA) Estimated GFR ( [place] > 60 mL/min/1.73m2 (test code = EGFRAA) Estimated GFR (Non Afr [place] > 60 mL/min/1.73m2 (test code = EGFRNAA) BUN/Creatinine Ratio (test code 19 ratio 10-20 N = BCRATIO) Glucose (test code = GLU) 154 mg/dL 74-106 H Osmolality,Calculated (test code 300.2 = OSMOC) Calcium (test code = CA) 9.6 mg/dL 8.3-10.6 N Bilirubin,Total (test code = 0.4 mg/dL 0.2-1.1 N BILIT) Aspartate Amino Transferase 32 U/L 0-34 N (test code = AST) Alanine Aminotransferase (test 28 U/L 10-49 N code = ALT) Total Protein (test code = TP) 6.6 g/dL 5.7-8.2 N Albumin Level (test code = ALB) 4.5 g/dL 3.2-4.8 N Globulin (test code = GLOB) 2.1 mg/dL 2.3-3.5 L Albumin/Globulin Ratio (test 2.1 ratio 0.8-2.0 H code = AGRATIO) Alkaline Phosphatase (test code 99 U/L 46-116 N = ALP) Ethanol [id number] 16:56:00 Test Item Value Reference Range Interpretation Comments Ethanol (test code < 3 mg/dL The pharm acological = ETOH) response to blo od alcohol levels mayvary from individual to i ndividual. The fatal yossi ntrationhas been reported t o be >400mg/dL. Coronavirus PCR, COVID19 [id number] 16:56:00 Test Item Value Reference Range Interpretation Comments Coronavirus PCR, For use under Emergency COVID19 Rapid (test Use Authorization (EUA) code = SARSCOV2) only. Coronavirus PCR, Reference Range: COVID19 Rapid (test Negative code = QAQQUGO10.1) SARS-CoV-2 PCR Result: Negative by RT-PCR (test code = SARS-CoV-2 PCR Result:) COVID-19 Status: Asymptomatic"
[2023-03-23 14:01] LABS: Absolute Lymphocytes (CBC) 1.8 K/uL (0.7-4.9); Hematocrit 34.5 % (39.6-49.0); Lymphocytes % 21.9 % (15.3-44.8); MPV 7.6 fL (7.6-11.3); RBC Red Blood Cell Count 3.67 M/uL (4.33-5.43)
[2023-03-23 14:09] LABS: Protime INR 0.91
[2023-03-23 14:21] LABS: ALT/SGPT 30 U/L (16-61); AST/SGOT 45 U/L (15-37); Albumin 3.8 g/dL (3.4-5.0); Alkaline Phosphatase 105 U/L (45-117); BUN Blood Urea Nitrogen 16 mg/dL (7-18); Bicarbonate 30 mEq/L (21-32); Bilirubin Direct < 0.1 mg/dL (0-0.2); Bilirubin Total 0.2 mg/dL (0.2-1.0); Glomerular Filtration Rate 54 ml/min (=/>90); Glucose Level 124 mg/dL (74-106); Potassium 3.5 mEq/L (3.5-5.1); Protein, Total 7.3 g/dL (6.4-8.2); Sodium Level 141 mEq/L (136-145)
[2023-03-23 16:51] LABS: Specific Gravity 1.007 (1.005-1.030); Urine Bacteria <20 /HPF (<20); Urine Bilirubin NEGATIVE (Negative); Urine Blood Trace (Negative); Urine Clarity Clear (Clear); Urine Color Light-Yellow (Yellow); Urine Crystals Unidentified Few /HPF (None Seen); Urine Glucose NEGATIVE (Negative); Urine Mucus Slight /HPF (None Seen); Urine Protein TRACE (Negative); Urine RBC <5 /HPF (None Seen); Urine Urobilinogen Normal (Normal); Urine pH 5.5 (5.0-7.0)
[2023-03-23 16:58] LABS: Barbiturates NEGATIVE (NEGATIVE); Benzodiazepines NEGATIVE (NEGATIVE); Cocaine NEGATIVE (NEGATIVE); METHAMPHETAM NEGATIVE (NEGATIVE); Methadone NEGATIVE (NEGATIVE); Opiates NEGATIVE (NEGATIVE); Phencyclidine NEGATIVE (NEGATIVE); THC Cannibis NEGATIVE (NEGATIVE)
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
[2023-03-24 03:13] VITALS: O2SAT 98
[2023-03-24 03:14] VITALS: BP 127/77
--- NOTE | 2023-03-24 16:47 | EKG ---
Test Date: 2023-03-23 Test Time: 16:31:16 Planned Giving Officer: BEKAH MEASUREMENT RESULTS: Intervals: Rate: 67 WV: 142 QRSD: 90 QT: 424 QTc: 448 [place]: P: 61 WV: 142 QRS: 45 T: 78 INTERPRETIVE STATEMENTS: Normal sinus rhythm Septal infarct, age undetermined Abnormal ECG No previous ECG available for comparison Electronically Signed On 03-24-23 16:46:17 CDT by Tom Harper
== END 2023-03-24 01:43 ==
LOC: ER 11:02
DX: F31.2 Bipolar disorder, current episode manic severe with psychotic features (principal); F17.210 Nicotine dependence, cigarettes, uncomplicated
CPT/HCPCS: 93005; 85025; 81001; 80048; 36415; 82140; 85610; 80076; 85730; 80307; G0480 ×3; 99285